=== PATIENT | male | born 1970 | race Two or more races ===

== ENCOUNTER → 2020-04-09 | Outpatient (CLI) | payer OTHER ==
[2020-04-09 08:44] LABS: Urine Bacteria NONE SEEN /hpf (None Seen); Urine Blood Negative /uL (Negative); Urine Mucus FEW (None Seen); Urine Specific Gravity 1.022 (1.001-1.035); Urine WBC <1 /hpf (0 - 3)
[2020-04-09 08:47] LABS: Basophils # (auto) 0.1 10 ^3/uL (0-0.2); Basophils % (auto) 1.2 % (0.0-2.0); Eosinophils # (auto) 0.1 10 ^3/uL (0-0.8); Eosinophils % (auto) 2.5 % (0.0-7.0); Hematocrit 46.7 % (41.0-53.0); Mean Corpuscular Hemoglobin 31.1 pg (28.0-32.0); Mean Corpuscular Hgb Conc. 34.1 g/dL (32.0-36.0); Mean Corpuscular Volume 91.1 fL (80.0-100.0); Monocytes # (auto) 0.6 10 ^3/uL (0-1.3); Monocytes % (auto) 9.8 % (0.0-12.0); Neutrophils % (auto) 51.5 % (37.0-80.0); Nucleated Red Blood Cells % 0.1 %; Platelet Count (auto) 312 10^3/uL (140-450); Red Blood Cells 5.13 10^6/uL (4.5-5.90); Red Cell Distribution Width 13.3 % (11.8-14.3); White Blood Cell 5.8 10^3/uL (4.4-10.8)
[2020-04-09 09:19] LABS: Potassium 4.2 mmol/L (3.5-5.1)
[2020-04-09 09:22] LABS: Prostate Specific Antigen 0.77 ng/mL (0.0-4.0)
[2020-04-09 09:23] LABS: Folate (Folic Acid) 20.54 ng/mL (5.38-24)
[2020-04-09 09:29] LABS: Albumin 4.3 g/dL (3.4-5.0); BUN/Creatinine Ratio 14.4; Bilirubin, Total 0.8 mg/dL (0.2-1.0); Calcium 9.4 mg/dL (8.5-10.1); Total Protein 8.2 g/dL (6.4-8.2)
[2020-04-10 10:08] LABS: Hepatitis B Surface Antibody Negative
[2020-04-10 10:42] LABS: Hepatitis A Total Antibody Positive
[2020-04-10 12:04] LABS: Hepatitis B Core Total AB Negative; Hepatitis B Surface Antigen Negative (Negative); Hepatitis C Antibody Negative (Negative)
== END | disposition home or self-care (01) ==
LOC: LAB 08:10
PROVIDERS: ATTEND Internal Medicine
DX: I10 Essential (primary) hypertension (principal); R32 Unspecified urinary incontinence; R53.82 Chronic fatigue, unspecified; K61.0 Anal abscess
CPT/HCPCS: 36415; 80053; 80061; 81001; 82274; 82607; 82746; 83036; 84153; 84403; 84443; 85025; 86703; 86704; 86706; 86708; 86803; 87340

== ENCOUNTER → 2020-07-10 | Outpatient (CLI) | payer OTHER ==
[2020-07-10 08:36] LABS: Albumin 4.4 g/dL (3.4-5.0); Calcium 9.6 mg/dL (8.5-10.1); Potassium 4.2 mmol/L (3.5-5.1)
[2020-07-10 08:40] LABS: BUN/Creatinine Ratio 16.5; Bilirubin, Total 0.7 mg/dL (0.2-1.0); Total Protein 8.3 g/dL (6.4-8.2)
== END | disposition home or self-care (01) ==
LOC: LAB 07:54
PROVIDERS: ATTEND Internal Medicine
DX: E78.5 Hyperlipidemia, unspecified (principal)
CPT/HCPCS: 36415; 80053; 80061; 82306

== ENCOUNTER 2022-09-27 11:24 | Emergency (ER) | payer MEDICAID, OTHER ==
[~2022-09-27] VITALS: Ht 175.3 cm; Wt 87.0 kg
[2022-09-27 14:25] VITALS: BP 140/91
== END 2022-09-27 14:26 | disposition home or self-care (01) ==
LOC: ER 11:33
DX: S02.32XD Fracture of orbital floor, left side, subsequent encounter for fracture with routine healing (principal); X58.XXXD Exposure to other specified factors, subsequent encounter